=== PATIENT | female | born 1995 | race Caucasian/White ===

== ENCOUNTER 2024-08-07 19:58 | Emergency (ER) | payer MEDICAID, SELFPAY ==
[2024-08-07 19:59] VITALS: BP 122/82
[2024-08-07 20:01] VITALS: BP 122/82
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
[2024-08-07 20:42] LABS: % Basophils 0.2 % (0-2); % Eosinophils 1.4 % (0-6); % Immature Granulocytes 0.2 % (0-0.5); % Lymphocytes 28.7 % (20.5-51.1); % Monocytes 5.1 % (1.7-9.3); % Neutrophils 64.4 % (42.2-75.2); Absolute Eosinophils 0.1 10^3/uL (0-0.7); Absolute Lymphocytes 2.6 10^3/uL (1.2-3.4); Absolute Monocytes 0.5 10^3/uL (0.1-0.6); Absolute Neutrophils 5.8 10^3/uL (1.4-6.5); Hematocrit 38.5 % (37.0-47.0); Hemoglobin 13.1 g/dL (12.0-16.0); Mean Corpuscular Hgb 28.9 pg (27.0-31.0); Mean Corpuscular Volume 84.8 fL (81.0-99.0); Mean Platelet Volume 9.7 fL (7.4-10.4); Nucleated Red Blood Cells % 0 %; Platelet Count 218 10^3/uL (130-400); Red Blood Cell Count 4.54 10^6/uL (4.20-5.40); Red Cell Dist. Width 12.5 % (11.5-14.5)
[2024-08-07 20:55] LABS: Amphetamines Positive (Negative); Barbiturates Negative (Negative); Cocaine Positive (Negative); Marijuana Positive (Negative); Tricyclic Antidepressants Negative (Negative)
[2024-08-07 20:56] LABS: Benzodiazepines Positive (Negative); Buprenorphine Negative (Negative); Methadone Negative (Negative); Methamphetamines Positive (Negative); Opiates Negative (Negative); Phencyclidine Negative (Negative)
[2024-08-07 21:00] LABS: ALT (SGPT) 14 U/L (0-35); AST (SGOT) 16 U/L (14-36); Albumin 4.1 g/dl (3.5-5.0); Alkaline Phosphatase 51 U/L (38-126); Blood Urea Nitrogen 12 mg/dl (7-17); Calcium 9.2 mg/dl (8.4-10.2); Carbon Dioxide 29 mmol/L (22-30); Chloride 105 mmol/L (98-107); Estimated Creatinine Clearance > 125 ml/min; Glucose 104 mg/dl (70-99); Potassium 3.8 mmol/L (3.5-5.1); Sodium 141 mmol/L (135-145); Total Bilirubin 0.5 mg/dl (0.2-1.3); Total Protein 6.5 g/dl (6.3-8.2); eGFR > 60.00
[2024-08-07 21:13] LABS: Fentanyl, Urine Positive (Negative)
[2024-08-07 21:17] LABS: Beta HCG Quantitative 54.38 mIU/ml
== END 2024-08-07 21:45 | disposition left against medical advice (07) ==
LOC: EMR 19:58
PROVIDERS: EMERGENCY PHYSICIAN Emergency Medicine
DX: R40.4 Transient alteration of awareness (principal); N93.9 Abnormal uterine and vaginal bleeding, unspecified; T19.2XXA Foreign body in vulva and vagina, initial encounter; W44.F9XA Other object of natural or organic material, entering into or through a natural orifice, initial encounter; Z53.29 Procedure and treatment not carried out because of patient's decision for other reasons
CPT/HCPCS: 99283; 80053; 80306; 80307; 84702; 85025; 87491; 87591